=== PATIENT | female | born 1990 | race Caucasian/White ===

== ENCOUNTER 2018-12-29 10:05 | Emergency (ER) | payer SELFPAY ==
[~2018-12-29] VITALS: Ht 162.6 cm; Wt 72.6 kg
[2018-12-29 10:49] VITALS: BP 110/85
[2018-12-29] MEDS ORDERED: cefTRIAXone SOD 1,000 MG VL IM ONE (11:15)
== END 2018-12-29 11:37 | disposition home or self-care (01) ==
LOC: ER 10:09
DX: J03.90 Acute tonsillitis, unspecified (principal); J06.9 Acute upper respiratory infection, unspecified
CPT/HCPCS: 96372; 99283; J0696